=== PATIENT | female | born 1955 | race Caucasian/White ===

== ENCOUNTER → 2022-09-04 10:39 | Day surgery (SDC) | payer MEDICARE, BC, SELFPAY ==
[2022-09-04 10:26] VITALS: BMI 21.7
[2022-09-04 12:03] VITALS: BP 117/59; PULSE 67; RESP 18; TEMP 36.1; O2SAT 97
[2022-09-04] MEDS: denosumab 60 mg SDV SUBCUT (12:06)
== END ==
PROVIDERS: PCP Family Medicine; Visit Provider Family Medicine
DX: M81.0 Age-related osteoporosis without current pathological fracture (principal)
CPT/HCPCS: 36415; 82310; 96372; J0897

== ENCOUNTER → 2023-03-04 07:57 | Day surgery (SDC) | payer MEDICARE, BC, SELFPAY ==
[2023-03-04 08:27] VITALS: BP 108/59; PULSE 61; RESP 18; TEMP 36.4; O2SAT 96
[2023-03-04 08:42] LABS: Calcium 8.9 mg/dL (8.5-10.5)
[2023-03-04] MEDS: denosumab 60 mg SDV SUBCUT (08:44)
--- NOTE | 2023-03-04 08:49 | PC.NURSE ---
Pt to GI infusions for Prolia injection. Calicum level today 8.9. Injection given as ordered.
== END ==
PROVIDERS: PCP Family Medicine; Visit Provider Family Medicine
DX: M81.0 Age-related osteoporosis without current pathological fracture (principal); Z79.899 Other long term (current) drug therapy
CPT/HCPCS: 36415; 82310; 96372; J0897